=== PATIENT | male | born 1975 | race Caucasian/White ===

== ENCOUNTER 2019-10-14 11:56 | Emergency (ER) | payer OTHER ==
[2019-10-14] MEDS ORDERED: Ketorolac 30 MG/ML SDV IVPUSH ONE (12:22)
[2019-10-14] MEDS ORDERED: Sodium Chloride 0.9% 10 ML Syringe FLUSH PRN (12:22)
[2019-10-14] MEDS ORDERED: Sodium Chloride 0.9% 2.5 ML Syringe FLUSH PRN (12:22)
--- NOTE | 2019-10-14 12:27 | EDM.PDOC ---
ED HPI GENERAL MEDICAL PROBLEM - General Chief Complaint: Back Pain or Injury Stated Complaint: LOWER BACK PAIN Time Seen by Provider: 10/14/19 12:15 - History of Present Illness INITIAL COMMENTS - FREE TEXT/NARRATIVE: History of present illness: Patient presents with low back pain after falling at work. He was detracting a trailer from a 18 [address] with a magen when the magen slipped he fell backwards landing flat on his back he did not hit his head he did not lose consciousness he did not have any particular pain at that time he was later seated in an office and when he got up there was a sudden onset of severe low back pain with spasm. He denies any trouble urinating no saddle anesthesia no weakness in the lower extremities. Lumbar pain is nonradiating but makes it worse being still makes it better. Patient is recently placed on new antihypertensives and diabetes medication he is not sure what the names of these medications are. He has been taking in approximately 1 month Review of systems: As per history of present illness and below otherwise all systems reviewed and negative. Past medical history: As per history of present illness and as reviewed below otherwise noncontributory. Surgical history: As per history of present illness and as reviewed below otherwise noncontributory. Social history: No reported history of drug or alcohol abuse. Family history: As per history of present illness and as reviewed below otherwise noncontributory. Physical exam: HEENT: Atraumatic, normocephalic, pupils reactive, negative for conjunctival pallor or scleral icterus, mucous membranes moist, throat clear, neck supple, nontender, trachea midline. Lungs: Clear to auscultation, breath sounds equal bilaterally, chest nontender. Heart: S1S2, regular, negative for clicks, rubs, or JVD. Abdomen: Soft, nondistended, nontender. Negative for masses or hepatosplenomegaly. Negative for costovertebral tenderness. Pelvis: Stable nontender. Genitourinary: Deferred. Rectal: Deferred. Extremities: Atraumatic, negative for cords or calf pain. Neurovascular unremarkable. Neuro: Awake, alert, oriented. Cranial nerves II through XII unremarkable. Cerebellum unremarkable. Motor and sensory unremarkable throughout. Exam nonfocal. No saddle anesthesia great toe strength 5 out of 5 bilaterally Back: There is no midline tenderness she has paraspinal spasm greater on the right side in the lumbar spine paraspinal musculature. Diagnostics: [] Therapeutics: [] Impression: Back pain, also noted to be hypotensive on his vital signs. [] Plan: Patient to get a liter of saline and some Toradol lumbar spine films will be obtained and he will be reassessed. [] Definitive disposition and diagnosis as appropriate pending reevaluation and review of above. lower back Pain Score (Numeric/FACES): 6 - Related Data Allergies Allergy/AdvReac Type Severity Reaction Status Date / Time Penicillins Allergy Other Verified 10/14/19 12:14 Home Meds: Home Meds Cyclobenzaprine [Flexeril] 10 mg PO TID #30 tab 10/14/19 [Rx] Empagliflozin [Jardiance] 25 mg PO DAILY 10/14/19 [History] Lisinopril/Hydrochlorothiazide [Lisinopril-Hctz 20-25 mg Tab] 1 each PO DAILY 10/14/19 [History] Naproxen [Naprosyn] 500 mg PO Q12HR #20 tab 10/14/19 [Rx] sitaGLIPtin Phos/Metformin HCl [Janumet 50-1,000 MG] 1 each PO BID 10/14/19 [ History] Past Medical History HEENT History: Reports: None Cardiovascular History: Reports: Hypertension Respiratory History: Reports: None Gastrointestinal History: Reports: None Genitourinary History: Reports: None Musculoskeletal History: Reports: None Neurological History: Reports: None Psychiatric History: Reports: None Endocrine/Metabolic History: Reports: Diabetes, Type II Hematologic History: Reports: None Immunologic History: Reports: None Oncologic (Cancer) History: Reports: None Dermatologic History: Reports: None - Infectious Disease History Infectious Disease History: Reports: Chicken Pox - Past Surgical History Head Surgeries/Procedures: Reports: None HEENT Surgical History: Reports: None Cardiovascular Surgical History: Reports: None Respiratory Surgical History: Reports: None GI Surgical History: Reports: None Male Surgical History: Reports: None Endocrine Surgical History: Reports: None Neurological Surgical History: Reports: None Musculoskeletal Surgical History: Reports: None Oncologic Surgical History: Reports: None Dermatological Surgical History: Reports: None Social & Family History - Family History Family Medical History: Noncontributory - Tobacco Use Smoking Status *Q: Never Smoker Second Hand Smoke Exposure: No - Caffeine Use Caffeine Use: Reports: None - Recreational Drug Use Recreational Drug Use: No ED ROS GENERAL - Review of Systems Review Of Systems: See Below ED EXAM, GENERAL - Physical Exam Exam: See Below Course - Vital Signs Text/Narrative:: 3 view lumbar spine read interpreted by me no acute fractures or subluxations are appreciated. Patient is feeling better after medications be discharged home naproxen and Flexeril limit weight lifting to no greater than 10 pounds follow-up with primary care. Last Recorded V/S: Last Vital Signs Temp 35.4 C L 10/14/19 12:10 Pulse 93 10/14/19 12:10 Resp 18 10/14/19 12:10 BP 113/54 L 10/14/19 13:48 Pulse Ox 93 L 10/14/19 12:10 - Orders/Labs/Meds Orders: Active Orders 24 hr Category Date Time Status Lumbar Spine 2 or 3V [CR] Stat Exams 10/14/19 12:22 Taken Sodium Chloride 0.9% [Normal Saline] 1,000 ml Med 10/14/19 12:30 Active IV ASDIRECTED Sodium Chloride 0.9% [Saline Flush] Med 10/14/19 12:22 Active 10 ml FLUSH ASDIRECTED PRN Sodium Chloride 0.9% [Saline Flush] Med 10/14/19 12:22 Active 2.5 ml FLUSH ASDIRECTED PRN Saline Lock Insert [OM.PC] Stat Oth 10/14/19 12:22 Ordered Medication Orders Sodium Chloride (Normal Saline) 1,000 mls @ 9,999 mls/hr IV ASDIRECTED MATTHEW Last Infusion: 10/14/19 12:26 Dose: 999 mls/hr Documented by: Admin: 10/14/19 12:25 Dose: 9,999 mls/hr Documented by: ZAHRA Sodium Chloride (Saline Flush) 10 ml FLUSH ASDIRECTED PRN PRN Reason: Keep Vein Open Last Admin: 10/14/19 12:26 Dose: 10 ml Documented by: ZAHRA Sodium Chloride (Saline Flush) 2.5 ml FLUSH ASDIRECTED PRN PRN Reason: Keep Vein Open Last Admin: 10/14/19 12:26 Dose: 2.5 ml Documented by: ZAHRA Meds: Medications Generic Name Dose Route Start Last Admin Trade Name Freq PRN Reason Stop Dose Admin Sodium Chloride 1,000 mls @ 9,999 mls/hr 10/14/19 12:30 10/14/19 12:26 Normal Saline IV 999 mls/hr ASDIRECTED MATTHEW Infusion Sodium Chloride 10 ml 10/14/19 12:22 10/14/19 12:26 Saline Flush FLUSH 10 ml ASDIRECTED PRN Administration Keep Vein Open Sodium Chloride 2.5 ml 10/14/19 12:22 10/14/19 12:26 Saline Flush FLUSH 2.5 ml ASDIRECTED PRN Administration Keep Vein Open Discontinued Medications Generic Name Dose Route Start Last Admin Trade Name Freq PRN Reason Stop Dose Admin Ketorolac Tromethamine 30 mg 10/14/19 12:22 10/14/19 12:25 Toradol IVPUSH 10/14/19 12:23 30 mg ONETIME ONE Administration Departure - Departure Time of Disposition: 14:07 Disposition: Home, Self-Care 01 Condition: Good Clinical Impression: Back pain - Discharge Information *PRESCRIPTION DRUG MONITORING PROGRAM REVIEWED*: Not Applicable *COPY OF PRESCRIPTION DRUG MONITORING REPORT IN PATIENT COURTNEY: Not Applicable Prescriptions: Cyclobenzaprine [Flexeril] 10 mg PO TID #30 tab Naproxen [Naprosyn] 500 mg PO Q12HR #20 tab Instructions: Acute Back Pain, Adult Referrals: Magali Joaquin NP [Primary Care Provider] - Forms: ED Department Discharge Additional Instructions: The following information is given to patients seen in the emergency department who are being discharged to home. This information is to outline your options for follow-up care. We provide all patients seen in our emergency department with a follow-up referral. The need for follow-up, as well as the timing and circumstances, are variable d epending upon the specifics of your emergency department visit. If you don't have a primary care physician on staff, we will provide you with a referral. We always advise you to contact your personal physician following an emergency department visit to inform them of the circumstance of the visit and for follow-up with them and/or the need for any referrals to a consulting specialist. The emergency department will also refer you to a specialist when appropriate. This referral assures that you have the opportunity for follow-up care with a specialist. All of these measure are taken in an effort to provide you with optimal care, which includes your follow-up. Under all circumstances we always encourage you to contact your private physician who remains a resource for coordinating your care. When calling for follow-up care, please make the office aware that this follow-up is from your recent emergency room visit. If for any reason you are refused follow-up, please contact the [facility] Emergency Department at and asked to speak to the emergency department charge nurse. [facility] [address] [place] [address] [facility] [address] [place] [id number] Sepsis Event Note (ED) - Evaluation Sepsis Screening Result: No Definite Risk - Focused Exam Vital Signs: Vital Signs Temp Pulse Resp BP Pulse Ox 10/14/19 13:48 113/54 L 10/14/19 12:10 35.4 C L 93 18 87/56 L 93 L - My Orders Last 24 Hours: My Active Orders 10/14/19 12:22 Lumbar Spine 2 or 3V [CR] Stat Sodium Chloride 0.9% [Saline Flush] 10 ml FLUSH ASDIRECTED PRN Sodium Chloride 0.9% [Saline Flush] 2.5 ml FLUSH ASDIRECTED PRN Saline Lock Insert [OM.PC] Stat 10/14/19 12:30 Sodium Chloride 0.9% [Normal Saline] 1,000 ml IV ASDIRECTED - Assessment/Plan Last 24 Hours: My Active Orders 10/14/19 12:22 Lumbar Spine 2 or 3V [CR] Stat Sodium Chloride 0.9% [Saline Flush] 10 ml FLUSH ASDIRECTED PRN Sodium Chloride 0.9% [Saline Flush] 2.5 ml FLUSH ASDIRECTED PRN Saline Lock Insert [OM.PC] Stat 10/14/19 12:30 Sodium Chloride 0.9% [Normal Saline] 1,000 ml IV ASDIRECTED
[2019-10-14] MEDS ORDERED: Sodium Chloride 0.9% 1,000 ML IV SCH (12:30)
--- NOTE | 2019-10-14 14:14 | CR ---
Indication: Back pain. Technique: Three views of the lumbar spine. Comparison: None Findings: Degenerative changes of the spine are identified. Facet joint arthropathy is identified. The vertebral body heights are well maintained. Intervertebral disc space narrowing is identified at L4-5 and L5-S1. Impression: Degenerative changes lower lumbar spine Dictated by Yolanda Rutledge MD @ Oct 14 2019 2:12PM Signed by Dr. Yolanda Rutledge @ Oct 14 2019 2:13PM
== END 2019-10-14 14:12 | disposition home or self-care (01) ==
LOC: MW.ED 11:56
DX: M54.5 Low back pain (principal); I10 Essential (primary) hypertension; E11.9 Type 2 diabetes mellitus without complications; Z79.84 Long term (current) use of oral hypoglycemic drugs; Z79.899 Other long term (current) drug therapy; Z88.0 Allergy status to penicillin
CPT/HCPCS: 72100; 96361; 96374; 99283; J1885; J7030